=== PATIENT | female | born 1950 | race Caucasian/White ===

== ENCOUNTER 2022-11-15 15:34 | Outpatient (CLI) | payer MEDICARE, SELFPAY ==
--- NOTE | 2022-11-15 16:04 | MR_ITS ---
WS: [id number] MRI ABDOMEN with and without contrast. CONTRAST. COMPARISON: CT 11/09/2022. Multiplanar, multisequence imaging is performed with and without contrast. MultiHance 14 mL IV. History: Left-sided abdominal pain for 4 weeks. Abdominal mass seen on prior CT. Large heterogeneous mass with both solid and cystic components centered in the LEFT abdomen inseparab le from the kidney. Mass appears to be arising from the mid to lower LEFT kidney with mass effect upo n the collecting system causing dilatation of the superior collecting system. Mass measures 12.7 cm t ransversely x 9.1 cm anterior posterior x 11.3 cm transverse. There is mass effect upon the distal pa ncreatic tail, spleen and midline structures. This mass does extend to the midline of the abdomen. Mo derate enhancement throughout the mass of the solid components. There is a small amount of fluid surr ounding the mass. Lobulated soft tissue similar to the mass along the retroperitoneum may be small ad jacent lymph nodes or configuration of the mass. The structures are inseparable. Favor there are some lymph nodes along the LEFT periaortic region measuring up to 1.7 cm. LEFT renal vein is not well visualized. Cannot exclude thrombosis. No pleural effusions. Hepatic cyst LEFT lobe of the liver measures 1.8 cm. Spleen and pancreas and li any are normal size. No bile duct dilatation. Gallbladder is contracted. Variable density in the lume n of the gallbladder suggesting stones. No adjacent pericholecystic fluid. Visualized GI tract is neg ative. MR/MR abdomen wo/w con* [id number] IMPRESSION: 1. Large heterogeneous mass with solid and cystic components and enhancement a rising from the LEFT kidney measures 12.7 x 9.1 x 11.3 cm. Renal neoplasm likel y. Recommend evaluation by urology. 2. Obstruction LEFT renal collecting system is probably secondary to mass effe ct. 3. LEFT renal vein is not well visualized. Only a portion is visualized and do es appear normal. 4. Small but enlarged retroperitoneal lymph nodes. Some of these are inseparab le from the mass favor there is retroperitoneal lymphadenopathy. 5. Benign hepatic cyst.
[2022-11-15] MEDS: gadobenate dimeglumine 20 mL vial IV (17:03)
== END 2022-11-15 15:35 | disposition home or self-care (01) ==
PROVIDERS: PCP Nurse Practitioner Family; Referring Provider Family Medicine; Visit Provider Nurse Practitioner Family
DX: N28.89 Other specified disorders of kidney and ureter (principal)
CPT/HCPCS: 74183; A9577